=== PATIENT | female | born 1975 | race Two or more races ===

== ENCOUNTER 2022-04-26 17:32 | Emergency (ER) | payer OTHER ==
[~2022-04-26] VITALS: Ht 172.7 cm; Wt 90.9 kg
[2022-04-26] MEDS ORDERED: CLON0.1T2 PO (17:52)
[2022-04-26] MEDS ORDERED: TRAZ-257 PO (17:52)
[2022-04-26] MEDS ORDERED: QUET50TA15 PO (17:52)
[2022-04-26] MEDS ORDERED: LAMO100 PO (17:52)
[2022-04-26] MEDS ORDERED: FLUO20CA36 PO (17:52)
[2022-04-26] MEDS ORDERED: BREX0.5T PO (17:52)
[2022-04-26 20:53] VITALS: BP 129/77
== END 2022-04-26 20:58 | disposition home or self-care (01) ==
LOC: EMS 17:34
DX: R60.0 Localized edema (principal); F32.A Depression, unspecified; I10 Essential (primary) hypertension
CPT/HCPCS: 85379; 93971; 99284

== ENCOUNTER 2022-05-21 12:19 | Emergency (ER) | payer OTHER ==
[~2022-05-21] VITALS: Ht 167.6 cm; Wt 72.7 kg
[~2022-05-21 12:19] MED LIST: BREX0.5T PO; CLON0.1T2 PO; FLUO20CA36 PO; LAMO100 PO; QUET50TA15 PO; TRAZ-257 PO
[2022-05-21] MEDS ORDERED: HYDR-4584 PO (12:27)
[2022-05-21] MEDS ORDERED: MAGNESIUM SULFATE 2 GM, MVI, ADULT NO.1 WITH VIT K 10 ML, THIAMINE 100 MG, FOLIC ACID 1... IV ONE ×5 (16:15)
[2022-05-21] MEDS ORDERED: QUET100T34 PO (16:16)
[2022-05-21 16:19] LABS: EOSINOPHILS % (AUTO) 1.1 % (1.0-6.0); HEMATOCRIT 31.1 % (36-46); HEMOGLOBIN 9.6 g/dL (12.0-16.0); LYMPHOCYTES # (AUTO) 1.5 K/uL (1.0-4.8); LYMPHOCYTES % (AUTO) 27.3 % (22.0-44.0); MEAN CORPUSCULAR HGB CONC 30.8 G/dL (31.0-37.0); MEAN CORPUSCULAR VOLUME 78 fL (80-100); MONOCYTES # (AUTO) 0.5 K/uL (0.1-1.0); MONOCYTES % (AUTO) 9.3 % (2.0-9.0); NEUTROPHILS # (AUTO) 3.4 K/uL (1.8-7.7); NEUTROPHILS % (AUTO) 61.3 % (40.0-70.0); PLATELET COUNT (AUTO) 416 K/uL (150-450); RED CELL DISTRIBUTION WIDTH 18.9 % (11.5-14.5)
[2022-05-21 16:32] LABS: ANION GAP 12 mmol/L (8-16); CALCIUM, TOTAL 8.6 mg/dL (8.8-10.5); CARBON DIOXIDE 22 mmol/L (22-29); CHLORIDE 105 mmol/L (98-107); CREATININE 0.61 mg/dL (0.60-1.30); GLOMERULAR FILTR. RATE CALC > 60 mL/min (>60); GLUCOSE,RANDOM 69 mg/dL (70-110); SODIUM SERUM 139 mmol/L (136-145); UREA NITROGEN, BLOOD 9 mg/dL (7-18)
[2022-05-21 16:38] LABS: ALANINE AMINOTRANSFERASE 14 U/L (12-78); ALBUMIN 3.3 g/dL (3.4-5.0); ALKALINE PHOSPHATASE 104 U/L (46-116); ASPARTATE AMINOTRANSFERASE 34 U/L (15-37); BILIRUBIN,TOTAL 0.5 mg/dL (0.1-1.0); TOTAL PROTEIN, SERUM 7.4 g/dL (6.4-8.2)
[2022-05-21 17:07] LABS: APPEARANCE,URINE CLEAR (CLEAR); BILIRUBIN,URINE NEGATIVE (NEGATIVE); GLUCOSE, URINE (UA) NEGATIVE (NEGATIVE); KETONES,URINE 40-60 mg/dL (NEGATIVE); LEUKOCYTE ESTERASE ,URINE TRACE (NEGATIVE); NITRATE,URINE NEGATIVE (NEGATIVE); OCCULT BLOOD,URINE NEGATIVE (NEGATIVE); PH,URINE 6.5 (5.0-8.0); PROTEIN,URINE TRACE mg/dL (NEGATIVE); SPECIFIC GRAVITIY, URINE 1.016 (1.003-1.030); UROBILINOGEN,URINE <=1.0 mg/dL (<=1.0)
[2022-05-21 17:16] LABS: AMPHET/METH SCREEN,URINE NEGATIVE (NEGATIVE); BARBITURATE SCREEN, URINE NEGATIVE (NEGATIVE); BENZODIAZEPINES SCREEN,URINE NEGATIVE (NEGATIVE); CANNABINOID SCREEN,URINE NEGATIVE (NEGATIVE); COCAINE SCREEN,URINE NEGATIVE (NEGATIVE); METHADONE SCREEN, URINE NEGATIVE (NEGATIVE); OPIATE SCREEN,URINE NEGATIVE (NEGATIVE); PHENCYCLIDINE SCREEN,URINE NEGATIVE (NEGATIVE)
[2022-05-21 17:19] LABS: BACTERIA,URINE None Seen /HPF (None Seen); RBC,URINE None Seen /HPF (0-2); SQUAMOUS EPITHELIAL CELL,UR Few /LPF (None Seen)
[2022-05-21] MEDS ORDERED: ChlordiazePOXIDE HCL 25 MG CAPSULE PO ONE (18:45)
[2022-05-21] MEDS ORDERED: LIB25 PO (20:51)
[2022-05-21 21:07] VITALS: BP 132/81
== END 2022-05-21 21:07 | disposition home or self-care (01) ==
LOC: EMS 12:55
DX: R60.0 Localized edema (principal); E86.0 Dehydration; I10 Essential (primary) hypertension; F32.A Depression, unspecified; F17.210 Nicotine dependence, cigarettes, uncomplicated; Z79.899 Other long term (current) drug therapy
CPT/HCPCS: 99285; 93970; 96365; 71045; 80053; 81001; 82140; 85025; 36415; 93005; 80307; G0480; J3490 ×2; J3411; J3475; J7030